=== PATIENT | male | born 1975 | race Caucasian/White ===

== ENCOUNTER → 2017-12-08 | Outpatient (CLI) | payer OTHER ==
[2017-12-08 15:50] LABS: CREATININE FOR GFR 0.78 MG/DL (0.70-1.30); GLOMERULAR FILTRATION RATE > 60.0 (>60)
[2017-12-08 15:50] LABS: BLOOD UREA NITROGEN 14 MG/DL (7-18)
== END ==
LOC: M LAB 15:05
DX: R74.0 Nonspecific elevation of levels of transaminase and lactic acid dehydrogenase [LDH] (principal)

== ENCOUNTER → 2017-12-08 | Outpatient (CLI) | payer OTHER ==
[~2017-12-08] MED LIST: GASTROGRAFIN SOLUTION 30ML (Q9963) As Ordered; ISOVUE-370 76% 100ML VIAL (Q9967) As Ordered
== END ==
LOC: M RAD 13:24
DX: R94.5 Abnormal results of liver function studies (principal)
CPT/HCPCS: Q9963

== ENCOUNTER → 2018-01-06 | Outpatient (CLI) | payer OTHER ==
[2018-01-06 11:13] LABS: ALBUMIN 4.2 GM/DL (3.2-5.2); ALBUMIN/GLOBULIN RATIO 1.31 (1.00-1.93); ALKALINE PHOSPHATASE 57 U/L (45-117); ALT/SGPT 64 U/L (12-78); AST/SGOT 27 U/L (7-37); BILIRUBIN,DIRECT 0.1 MG/DL (0.0-0.2); BILIRUBIN,TOTAL 0.5 MG/DL (0.2-1.0); FERRITIN 409 NG/ML (26-388); IRON (FE) 114 UG/DL (65-175); PERCENT SATURATION 38.3 % (19.7-50.0); TOTAL IRON BINDING CAPACITY 298 UG/DL (250-450); TOTAL PROTEIN 7.4 GM/DL (6.4-8.2)
[2018-01-07 12:06] LABS: HEPATITIS B SURFACE ANTIBODY NEGATIVE (POSITIVE)
[2018-01-08 10:16] LABS: ALPHA 1 ANTITRYPSIN 95 mg/dL (90-200); ALPHA 2-MACROGLOBULINS,QN 89 mg/dL (110-276); ALT (SGPT) P5P 61 IU/L (0-55); ANTINUCLEAR ANTIBODIES DIRECT Negative (Negative); APOLIPOPROTEIN A-1 144 mg/dL (101-178); AST (SGOT) P5P 34 IU/L (0-40); BILIRUBIN, TOTAL 0.4 mg/dL (0.0-1.2); CERULOPLASMIN 16.9 mg/dL (16.0-31.0); CHOLESTEROL TOTAL 171 mg/dL (100-199); FIBROSIS SCORE 0.07 (0.00-0.21); GGT 47 IU/L (0-65); GLUCOSE, SERUM 120 mg/dL (65-99); HAPTOGLOBIN 92 mg/dL (34-200); HEIGHT 83 in (.); HEPATITIS A IgG TOTAL Negative (Negative); LIVER-KIDNEY MICROSOMAL ABY 1.1 Units (0.0-20.0); STEATOSIS SCORE 0.52 (0.00-0.30); TRIGLYCERIDES 139 mg/dL (0-149); WEIGHT 207 LBS (.)
[2018-01-08 10:16] LABS: ANTI-SMOOTH MUSCLE ANTIBODY 4 Units (0-19)
== END ==
LOC: M LAB 08:19
DX: K57.32 Diverticulitis of large intestine without perforation or abscess without bleeding (principal)
CPT/HCPCS: 83010

== ENCOUNTER 2018-02-05 07:43 | Day surgery (SDC) | payer OTHER ==
[2018-02-05] MEDS: NS 1,000 ML IV (08:05)
[2018-02-05] MEDS ORDERED: LIDOCAINE 2% INJ 100 MG/5 ML SDV (FOR ANES.) As Ordered (09:32)
[2018-02-05] MEDS ORDERED: PROPOFOL 500 MG/50 ML VIAL As Ordered ×2 (09:32→10:19)
== END 2018-02-05 10:42 | disposition home or self-care (01) ==
LOC: M OPP 07:43
DX: K57.30 Diverticulosis of large intestine without perforation or abscess without bleeding (principal); K64.8 Other hemorrhoids; D12.0 Benign neoplasm of cecum; D12.7 Benign neoplasm of rectosigmoid junction; K57.32 Diverticulitis of large intestine without perforation or abscess without bleeding; I10 Essential (primary) hypertension; E11.9 Type 2 diabetes mellitus without complications; Z79.82 Long term (current) use of aspirin; Z79.84 Long term (current) use of oral hypoglycemic drugs; Z79.899 Other long term (current) drug therapy; Z87.891 Personal history of nicotine dependence
CPT/HCPCS: 45385

== ENCOUNTER 2018-11-07 11:49 | Emergency (ER) | payer OTHER ==
[~2018-11-07] VITALS: Ht 182.9 cm; Wt 105.0 kg
[~2018-11-07 11:49] MED LIST changes: +ASPI81TA85 PO; -GASTROGRAFIN SOLUTION 30ML (Q9963) As Ordered; -ISOVUE-370 76% 100ML VIAL (Q9967) As Ordered; +JANU100T PO; +LISI-538 PO; +METF10004 PO
[2018-11-07] MEDS ORDERED: NS 2,000 ML IV ONE (12:30)
[2018-11-07 12:54] LABS: BASO % 0.6 % (0.0-1.0); EOS # 0.2 10^3/uL (0.0-0.50); EOS % 2.2 % (0.0-3.0); HEMATOCRIT 42.9 % (42.0-52.0); HEMOGLOBIN 14.5 g/dl (13.5-17.5); LYMPH # 2.7 10^3/uL (1.5-4.5); LYMPH % 39.6 % (24.0-44.0); MEAN CORPUSCULAR HEMOGLOBIN 28.4 pg (27.0-33.0); MEAN CORPUSCULAR HGB CONC 33.8 g/dl (32.0-36.5); MEAN CORPUSCULAR VOLUME 84.1 fl (80.0-96.0); MONO # 0.6 10^3/uL (0.0-0.8); MONO % 8.8 % (0.0-5.0); NEUTROPHILS # 3.3 10^3/uL (1.8-7.7); NEUTROPHILS % 48.2 % (36.0-66.0); PLATELET COUNT, AUTOMATED 176 10^3/uL (150-450); WHITE BLOOD COUNT 6.8 10^3/uL (4.0-10.0)
[2018-11-07 13:20] LABS: OSMOLALITY SERUM 305 MOSM/KG (275-295)
[2018-11-07 13:24] LABS: ALBUMIN 4.1 GM/DL (3.2-5.2); ALT/SGPT 120 U/L (12-78); BILIRUBIN,DIRECT < 0.1 MG/DL (0.0-0.2); BILIRUBIN,TOTAL 0.4 MG/DL (0.2-1.0); BLOOD UREA NITROGEN 15 MG/DL (7-18); CALCIUM LEVEL 8.5 MG/DL (8.5-10.1); CARBON DIOXIDE LEVEL 28 MEQ/L (21-32); CHLORIDE LEVEL 98 MEQ/L (98-107); CK-MB VALUE MASS < 1.0 NG/ML (<3.6); CPK CREATINE PHOSPHOKINASE 142 U/L (39-308); GLOMERULAR FILTRATION RATE > 60.0 (>60); GLUCOSE, FASTING 363 MG/DL (70-100); PHOSPHORUS LEVEL 3.9 MG/DL (2.5-4.9); POTASSIUM SERUM 4.4 MEQ/L (3.5-5.1); SODIUM LEVEL 136 MEQ/L (136-145); TOTAL PROTEIN 7.1 GM/DL (6.4-8.2); TROPONIN I < 0.02 NG/ML (< 0.10)
[2018-11-07 13:32] LABS: HEMOGLOBIN A1c 11.6 %
[2018-11-07] MEDS ORDERED: HumuLIN R (REGULAR) INSULIN (NovoLIN R) **100U/ML** PER UNIT IV ONE ×2 (14:15)
[2018-11-07 16:01] VITALS: BP 131/86
--- NOTE | 2018-11-08 17:42 | ECGEPIP ---
Stationary ECG Study [facility] - ED Test Date: 2018-11-07 Pat Name: OKSANA GORDON Department: Room: - Gender: M [employer] Operator: james : [id number] Requested By: KEN Moon Order Number: [id number] Reading MD: Jasmin Gilliland Measurements Intervals [place] Rate: 96 P: 49 AL: 169 QRS: 34 QRSD: 94 T: 15 QT: 327 QTc: 414 Interpretive Statements SINUS RHYTHM NONSPECIFIC T-WAVE ABNORMALITY, SUBTLE ST ELEVATION REQUIRES CLINICAL CORRELATION NO PRIOR FOR COMPARISON Electronically Signed On 11-08-2018 17:42:05 EST by Jasmin Gilliland
== END 2018-11-07 16:06 | disposition home or self-care (01) ==
LOC: M ED 11:49
DX: E11.65 Type 2 diabetes mellitus with hyperglycemia (principal); I10 Essential (primary) hypertension; K57.30 Diverticulosis of large intestine without perforation or abscess without bleeding; Z79.84 Long term (current) use of oral hypoglycemic drugs